=== PATIENT | female | born 1965 | race Caucasian/White ===

== ENCOUNTER 2024-11-21 14:19 | Inpatient (IN) | payer OTHER ==
[2024-11-21 15:59] LABS: ABSOLUTE IMMATURE GRANULOCYTES 0.03 x10^3/uL (0.0-0.031); BASOPHILS # 0.08 x10^3/uL (0.01-0.08); EOSINOPHIL % 3.2 % (0.7-5.8); EOSINOPHILS # 0.33 x10^3/uL (0.04-0.36); MCHC 28.6 g/dl (32.2-35.5); MEAN CELL VOLUME 53.8 fl (79.4-94.8); MONOCYTE # 0.57 x10^3/uL (0.24-0.86); MONOCYTE % 5.5 % (4.7-12.5); RDW 21.0 % (12.3-16.6)
[2024-11-21 16:07] LABS: INR 1.03 (0.83-1.09); PROTHROMBIN TIME (PATIENT) 11.3 SEC (9.7-13.0)
[2024-11-21 16:09] LABS: ACTIVATED PTT 37.9 SECONDS (25.2-36.5)
[2024-11-21 16:29] LABS: CO2 25 mmol/L (21-32); GLUCOSE,RANDOM 117 mg/dL (74-106); SGPT/ALT 37 U/L (13-61)
[2024-11-21 16:30] LABS: TOT PROT 8.3 g/dl (6.4-8.2)
[2024-11-21 16:31] LABS: CREATININE 0.8 mg/dL (0.55-1.3); SGOT/AST 159 U/L (15-37)
[2024-11-21 16:32] LABS: ALK PHOS 152 U/L (45-117)
[2024-11-21 16:41] LABS: ERYTHROCYTE SEDIMENTATION RATE 53 mm/hr (0-30)
[2024-11-21] MEDS ORDERED: ACETAMINOPHEN INJECTION 100 ML ONE (19:34)
[2024-11-21] MEDS: LACTATED RINGERS SOLUTION 1000 ML INFUS.BAG IV ONE (19:41)
[2024-11-21] MEDS: ACETAMINOPHEN 1000 MG/100 ML BAG IVPB ONE (19:41)
[2024-11-21 19:49] LABS: HIV INTERPRETATION NEGATIVE (NEGATIVE)
[2024-11-21 19:51] LABS: HCV DIAGNOSTIC IN-HOUSE W/RFLX NON-REACTIVE (NONREACTIVE)
[2024-11-21] MEDS: BACLOFEN 10 MG TABLET (FP) PO SCH (23:54)
[2024-11-22] MEDS: LIDOCAINE HCL 1%, 10 MG/ML (20ML VIAL) INF ONE
[2024-11-22] MEDS ORDERED: ACETAMINOPHEN 1000 MG/100 ML BAG IVPB PRN ×2 (11:36→14:57)
[2024-11-22] MEDS ORDERED: KETOROLAC TROMETHAMINE 15 MG/ML VIAL IM PRN (11:36)
[2024-11-22] MEDS ORDERED: LIDOCAINE HCL/PF 2% SDV 5ML VIAL ONE (12:38)
[2024-11-22] MEDS ORDERED: MIDAZOLAM HCL 2 MG/2 ML SINGLE DOSE VIAL ONE (12:38)
[2024-11-22] MEDS ORDERED: PROPOFOL 20 ML ONE (12:38)
[2024-11-22 13:31] LABS: CO2 30.0 mmol/L (21-32); GLUCOSE,RANDOM 91.0 mg/dL (74-106)
[2024-11-22 13:34] LABS: CREATININE 0.6 mg/dL (0.55-1.3)
[2024-11-22] MEDS: BUPIVACAINE HCL/PF 0.5% (5 MG/ML) 30 ML VIAL IJ ONE ×3 (14:24)
[2024-11-22] MEDS: LIDOCAINE HCL 2% (50ML VIAL) INF ONE ×3 (14:24)
[2024-11-22 14:38] LABS: INR 1.02 (0.83-1.09); PROTHROMBIN TIME (PATIENT) 11.1 SEC (9.7-13.0)
[2024-11-22] MEDS ORDERED: ONDANSETRON 4 MG/2 ML VIAL IVPUSH PRN (14:59)
[2024-11-22] MEDS: CEFTRIAXONE 2 GM in DEXTROSE 5%-WATER 100 ML IVPB SCH (16:55)
[2024-11-22] MEDS: BACLOFEN 10 MG TABLET (FP) PO SCH (21:39)
[2024-11-23] VITALS: BMI 30.4
[2024-11-23 08:35] LABS: ABSOLUTE IMMATURE GRANULOCYTES 0.03 x10^3/uL (0.0-0.031); BASOPHILS # 0.10 x10^3/uL (0.01-0.08); EOSINOPHIL % 2.2 % (0.7-5.8); EOSINOPHILS # 0.19 x10^3/uL (0.04-0.36); MCHC 27.9 g/dl (32.2-35.5); MEAN CELL VOLUME 54.0 fl (79.4-94.8); MONOCYTE # 0.56 x10^3/uL (0.24-0.86); MONOCYTE % 6.5 % (4.7-12.5); RDW 20.5 % (12.3-16.6)
[2024-11-23 09:34] LABS: CO2 30.0 mmol/L (21-32); GLUCOSE,RANDOM 88.0 mg/dL (74-106)
[2024-11-23 09:37] LABS: CREATININE 0.7 mg/dL (0.55-1.3); SGOT/AST 12.0 U/L (15-37); SGPT/ALT 15.0 U/L (13-61)
[2024-11-23 09:38] LABS: TOT PROT 6.8 g/dl (6.4-8.2)
[2024-11-23 09:39] LABS: ALK PHOS 131.0 U/L (45-117)
[2024-11-23] MEDS: ASCORBIC ACID 500 MG TABLET (FP) PO SCH (11:42)
[2024-11-23] MEDS: MULTIVITAMINS (DAILY MVI) TABLET (FP) PO SCH (11:42)
[2024-11-23] MEDS: ENOXAPARIN NA (PORCINE) 40 MG/0.4 ML DISP.SYRIN SQ SCH (12:57)
[2024-11-23] MEDS: AMINO ACIDS/PROTEIN HYDROLYS 30 ML LIQUID.PKT PO SCH (12:57)
[2024-11-23 20:57] VITALS: RESP 18
[2024-11-24] MEDS: DOCUSATE SODIUM 100 MG CAPSULE (FP) PO SCH (17:43)
[2024-11-25 09:16] LABS: MCHC 28.3 g/dl (32.2-35.5); MEAN CELL VOLUME 53.8 fl (79.4-94.8); RDW 20.8 % (12.3-16.6)
[2024-11-25 09:58] LABS: CO2 29.0 mmol/L (21-32); GLUCOSE,RANDOM 90.0 mg/dL (74-106)
[2024-11-25 10:01] LABS: CREATININE 0.6 mg/dL (0.55-1.3)
[2024-11-25 10:05] LABS: ERYTHROCYTE SEDIMENTATION RATE 36 mm/hr (0-30)
[2024-11-26] MEDS: POLYETHYLENE GLYCOL (HEALTHYLAX) 3350 17 GM PACKET PO SCH (11:47)
[2024-11-28 06:55] VITALS: TEMP 98.1
[2024-11-28 09:41] VITALS: BP 135/68; PULSE 92
== END 2024-11-28 14:25 | disposition home or self-care (01) | DRG 478 ==
LOC: JER 14:19 → JERBED 15:09 → OBSVTOIN 19:49 → J5S 22:45
PROVIDERS: ADMIT Student in an Organized Health Care Education/Training Program; ATTEND Internal Medicine
PROC: 0QBP3ZX Excision of Left Metatarsal, Percutaneous Approach, Diagnostic (ICD-10-PCS; principal; 2024-11-22 12:00)
PROC: 02HV33Z Insertion of Infusion Device into Superior Vena Cava, Percutaneous Approach (ICD-10-PCS; 2024-11-27)
PROC: B548ZZA Ultrasonography of Superior Vena Cava, Guidance (ICD-10-PCS; 2024-11-27)
DX: M86.672 Other chronic osteomyelitis, left ankle and foot (principal); L97.429 Non-pressure chronic ulcer of left heel and midfoot with unspecified severity; G35 Multiple sclerosis; D64.9 Anemia, unspecified; F32.9 Major depressive disorder, single episode, unspecified; Z99.3 Dependence on wheelchair; K59.00 Constipation, unspecified
CPT/HCPCS: 36415; 36569; 80048; 80053; 83735; 84132; 85025; 85027; 85610; 85651; 85730; 86140; 86803; 86850; 86900; 86901; 87070; 87075; 87205; 87389; 94010; 94760; 99285-25; G0378; J0475